=== PATIENT | male | born 1995 | race African-American/Black ===

== ENCOUNTER 2016-08-30 11:32 | Emergency (ER) | payer OTHER, MEDICAID ==
[~2016-08-30] VITALS: Ht 177.8 cm; Wt 68.0 kg
[~2016-08-30 11:32] MED LIST: EPIP0.3I IM; MONT10TA2 PO; PRED20 PO; RANI300T PO
[2016-08-30 11:42] VITALS: BP 124/60; PULSE 87; RESP 18; TEMP 98; O2SAT 99
--- NOTE | 2016-08-30 12:17 | PD ---
Physical Exam Time Seen by Provider: 12:15 Narrative 21 y/o male here for evaluation of benadryl ingestion. Took 15 benadryl at some point today, unknown time. When asked why he says "I don't want to talk about it." Vital signs reviewed. Seen at triage desk. Awaiting bed placement. Data Data Last Documented VS Vital Signs Date Time Temp Pulse Resp B/P Pulse Ox O2 Delivery O2 Flow Rate FiO2 08/30/16 11:42 98.0 87 18 124/60 99 MDM Medical Record Reviewed: Yes Supervised Visit with TYRESE: Homer Elaine Aug 30, 2016 12:17
--- NOTE | 2016-08-30 12:37 | PD ---
HPI Chief Complaint: OD/ Ingestion Time Seen by Provider: 12:23 Travel History International Travel<30 days: No Contact w/Intl Traveler<30days: No Traveled to known affect area: No History of Present Illness HPI PATIENT WITH H/O DEPRESSION ON NO MEDICATIONS, STATES THAT HE TOOK 15 BENADRYL ABOUT 1HR AGO, DENIES ANY ACUTE SYMPTOMS BUT ACTION WAS DONE A SI PFSH Past Medical History Developmental Delay: No Diminished Hearing: No Immunizations Current: Yes Social History Alcohol Use: No Tobacco Use: No Allergies-Medications (Allergen,Severity, Reaction): Coded Allergies: Claritin (Verified Allergy, Unknown, 08/30/16) Uncoded Allergies: ENVIROMENTAL (Allergy, Severe, 07/17/12) PEPPERONI (Allergy, Severe, 07/17/12) Reported Meds & Prescriptions Reported Meds & Active Scripts Active Singulair (Montelukast Sodium) 10 Mg Tab 10 Mg PO HS Zantac (Ranitidine HCl) 300 Mg Tab 300 Mg PO BID 5 Days Deltasone (Prednisone) 20 Mg Tab 20 Mg PO BID Reported Epipen (Epinephrine HCl) 0.3 Mg Inj 0.3 Mg IM DIRECTED GIVE IM IN THIGH, MAY REPEAT IF NEEDED Review of Systems Except as stated in HPI: all other systems reviewed are Neg Physical Exam Narrative GENERAL: SKIN: Warm and dry. HEAD: Atraumatic. Normocephalic. EYES: Pupils equal and round. No scleral icterus. No injection or drainage. ENT: No nasal bleeding or discharge. Mucous membranes pink and moist. NECK: Trachea midline. No JVD. CARDIOVASCULAR: RegULAR, TACHYCARDIA RESPIRATORY: No accessory muscle use. Clear to auscultation. Breath sounds equal bilaterally. GASTROINTESTINAL: Abdomen soft, non-tender, nondistended. Hepatic and splenic margins not palpable. MUSCULOSKELETAL: Extremities without clubbing, cyanosis, or edema. No obvious deformities. NEUROLOGICAL: Awake and alert. No obvious cranial nerve deficits. Motor grossly within normal limits. Five out of 5 muscle strength in the arms and legs. Normal speech. PSYCHIATRIC: Appropriate mood and affect; insight and judgment normal. Data Data Last Documented VS Vital Signs Date Time Temp Pulse Resp B/P Pulse Ox O2 Delivery O2 Flow Rate FiO2 08/30/16 13:45 119 08/30/16 11:42 98.0 18 124/60 99 Orders Complete Blood Count With Diff (08/30/16 12:23) Comprehensive Metabolic Panel (08/30/16 12:23) Urinalysis - C+S If Indicated (08/30/16 12:23) Electrocardiogram (08/30/16 12:23) Psych Screen (08/30/16 12:23) Drug Screen, Random Urine (08/30/16 12:23) Alcohol (Ethanol) (08/30/16 12:23) Salicylates (Aspirin) (08/30/16 12:23) Tylenol (Acetaminophen) (08/30/16 12:23) Sodium Chlor 0.9% 1000 Ml Inj (Ns 1000 M (08/30/16 12:45) Electrocardiogram (08/30/16 13:34) Labs Laboratory Tests Test 08/30/16 08/30/16 13:00 13:45 White Blood Count 9.6 TH/MM3 Red Blood Count 4.72 MIL/MM3 Hemoglobin 14.7 GM/DL Hematocrit 42.5 % Mean Corpuscular Volume 90.1 FL Mean Corpuscular Hemoglobin 31.1 PG Mean Corpuscular Hemoglobin 34.6 % Concent Red Cell Distribution Width 12.9 % Platelet Count 190 TH/MM3 Mean Platelet Volume 7.8 FL Neutrophils (%) (Auto) 71.7 % Lymphocytes (%) (Auto) 17.6 % Monocytes (%) (Auto) 10.3 % Eosinophils (%) (Auto) 0.0 % Basophils (%) (Auto) 0.4 % Neutrophils # (Auto) 6.9 TH/MM3 Lymphocytes # (Auto) 1.7 TH/MM3 Monocytes # (Auto) 1.0 TH/MM3 Eosinophils # (Auto) 0.0 TH/MM3 Basophils # (Auto) 0.0 TH/MM3 CBC Comment DIFF FINAL Differential Comment Sodium Level 138 MEQ/L Potassium Level 3.8 MEQ/L Chloride Level 104 MEQ/L Carbon Dioxide Level 26.8 MEQ/L Anion Gap 7 MEQ/L Blood Urea Nitrogen 8 MG/DL Creatinine 0.97 MG/DL Estimat Glomerular Filtration 120 ML/MIN Rate Random Glucose 108 MG/DL Calcium Level 9.5 MG/DL Total Bilirubin 0.6 MG/DL Aspartate Amino Transf 18 U/L (AST/SGOT) Alanine Aminotransferase 26 U/L (ALT/SGPT) Alkaline Phosphatase 80 U/L Total Protein 7.9 GM/DL Albumin 4.7 GM/DL Salicylates Level LESS THAN 1.7 MG/DL Acetaminophen Level LESS THAN 2.0 MCG/ML Ethyl Alcohol Level LESS THAN 3 MG/DL Urine Color YELLOW Urine Turbidity CLEAR Urine pH 7.5 Urine Specific [place] 1.020 Urine Protein 30 mg/dL Urine Glucose (UA) NEG mg/dL Urine Ketones TRACE mg/dL Urine Occult Blood NEG Urine Nitrite NEG Urine Bilirubin NEG Urine Urobilinogen LESS THAN 2.0 MG/DL Urine Leukocyte Esterase NEG Urine RBC LESS THAN 1 /hpf Urine WBC 3 /hpf Urine Squamous Epithelial 1 /hpf Cells Urine Mucus FEW /lpf Microscopic Urinalysis Comment CULT NOT INDICATED MDM Medical Decision Making Medical Screen Exam Complete: Yes Emergency Medical Condition: Yes Medical Record Reviewed: Yes Differential Diagnosis od with si, check for multiple ingestions, check for qt prolongation, check for hypotension....if none present will clear for psych Narrative Course see above Physician Communication Physician Communication D/W POISON CONTROL RECC PAPER BALER, AND SUPPORTIVE CARE....at 1500 d/w poison control based on no worsening of ekg and improvement of tachycardia yet lack of somnolence patient can be medically cleared after 4hrs observation. [place] [facility] [facility], [place] act in place Diagnosis Primary Impression: Medical clearance for psychiatric admission Additional Impression: nonlethal ingestion of benadryl Franklin Ospina MD Aug 30, 2016 12:37
[2016-08-30] MEDS ORDERED: SODIUM CHLOR 0.9% 1000 ML INJ 1,000 ML IV ONE (12:45)
[2016-08-30 13:13] LABS: AUTOMATED NEUTROPHIL # 6.9 TH/MM3 (1.8-7.7); BASOPHIL % 0.4 % (0.0-2.0); HEMATOCRIT 42.5 % (39.0-51.0); HEMO FLAGS DIFF FINAL; LYMPH % 17.6 % (9.0-44.0); LYMPHOCYTE # 1.7 TH/MM3 (1.0-4.8); MEAN CELL VOLUME 90.1 FL (80.0-100.0); MEAN CORPUSCULAR HEMOGLOBIN 31.1 PG (27.0-34.0); MEAN CORPUSCULAR HGB CONC 34.6 % (32.0-36.0); MONO % 10.3 % (0.0-8.0); NEUT % 71.7 % (16.0-70.0); PLATELET COUNT 190 TH/MM3 (150-450); RED BLOOD COUNT 4.72 MIL/MM3 (4.50-5.90); RED CELL DISTRIBUTION WIDTH 12.9 % (11.6-17.2); WHITE BLOOD COUNT 9.6 TH/MM3 (4.0-11.0)
[2016-08-30 13:34] LABS: ANION GAP 7 MEQ/L (5-15); AST (GOT) 18 U/L (15-39); BICARBONATE 26.8 MEQ/L (21.0-32.0); BLOOD UREA NITROGEN 8 MG/DL (7-18); CHLORIDE 104 MEQ/L (98-107); GLOMERULAR FILTRATION RATE 120 ML/MIN (>89); POTASSIUM 3.8 MEQ/L (3.5-5.1); SODIUM (NA) 138 MEQ/L (136-145)
[2016-08-30 13:40] LABS: ACETAMINOPHEN LESS THAN 2.0 MCG/ML (10.0-30.0); ALKALINE PHOSPHATASE 80 U/L (45-117); ALT (GPT) 26 U/L (9-52); TOTAL BILIRUBIN ADULT 0.6 MG/DL (0.2-1.0)
[2016-08-30 13:45] VITALS: PULSE 119
[2016-08-30 14:15] LABS: BLOOD, URINE NEG (NEG); COMMENT (UR) CULT NOT INDICATED; CULTURE IF INDICATED CULT NOT INDICATED; GLUCOSE,URINE NEG (NEG); KETONE, URINE TRACE mg/dL (NEG); MUCUS URINE FEW /lpf (OCC); NITRITE,URINE NEG (NEG); PH, URINE 7.5 (5.0-8.5); SQUAMOUS EPITHELIAL CELL URINE 1 /hpf (0-5); URINE COLOR YELLOW (YELLW/STRAW)
[2016-08-30 15:07] VITALS: BP 133/75; PULSE 98; RESP 20; O2SAT 96
[2016-08-30 15:43] LABS: AMPHETAMINE, URINE NEG (NEG); BARBITURATES, URINE NEG (NEG); COCAINE, URINE NEG (NEG)
[2016-08-30 16:05] VITALS: BP 128/87; PULSE 84; RESP 18; TEMP 98.9; O2SAT 97
[2016-08-30 22:36] VITALS: BP 103/56; PULSE 58; RESP 17; O2SAT 98
--- NOTE | 2016-08-31 22:16 | EKG ---
Date Performed: 08/30/2016 Time Performed: 12:41:56 PTAGE: 21 years EKG: SINUS TACHYCARDIA POSSIBLE LEFT ATRIAL ENLARGEMENT ABNORMAL RHYTHM ECG NO PREVIOUS TRACING DOCTOR: Cj Garay Interpretating Date/Time 08/31/2016 22:15:19
--- NOTE | 2016-08-31 22:16 | EKG ---
Date Performed: 08/30/2016 Time Performed: 15:02:26 PTAGE: 21 years EKG: Sinus rhythm Since PREVIOUS TRACING , no significant change noted ST ELEVATION, CONSIDER ANTERIOR INJURY ACUTE NM PREVIOUS TRACIN08/30/2016 12.41.56 DOCTOR: Cj Garay Interpretating Date/Time 08/31/2016 22:15:59
== END 2016-08-31 01:51 ==
LOC: NEPC 11:32 → NEPJ 08-31 01:51
DX: T45.0X2A Poisoning by antiallergic and antiemetic drugs, intentional self-harm, initial encounter (principal); R00.0 Tachycardia, unspecified
CPT/HCPCS: 80053; 80307; 81001; 85025; 93005